=== PATIENT | female | born 1990 | race Caucasian/White ===

== ENCOUNTER → 2017-01-02 | Outpatient (CLI) | payer OTHER ==
[~2017-01-02] MED LIST: AVIATAB PO; FERR324T4 PO; IBUP-238 PO; SYNT88TA PO
[2017-01-02 13:30] LABS: AUTOMATED NEUTROPHIL # 4.3 TH/MM3 (1.8-7.7); BASOPHIL % 0.5 % (0.0-2.0); EOSINOPHIL # 0.2 TH/MM3 (0-0.4); EOSINOPHIL % 2.8 % (0.0-4.0); HEMATOCRIT 35.9 % (35.0-46.0); HEMO FLAGS DIFF FINAL; LYMPH % 23.6 % (9.0-44.0); LYMPHOCYTE # 1.6 TH/MM3 (1.0-4.8); MEAN CELL VOLUME 80.7 FL (80.0-100.0); MEAN CORPUSCULAR HEMOGLOBIN 27.7 PG (27.0-34.0); MEAN CORPUSCULAR HGB CONC 34.3 % (32.0-36.0); MONO % 8.7 % (0.0-8.0); NEUT % 64.4 % (16.0-70.0); PLATELET COUNT 295 TH/MM3 (150-450); RED BLOOD COUNT 4.44 MIL/MM3 (4.00-5.30); WHITE BLOOD COUNT 6.7 TH/MM3 (4.0-11.0)
[2017-01-02 14:09] LABS: ALKALINE PHOSPHATASE 102 U/L (45-117); ALT (GPT) 30 U/L (10-53); ANION GAP 5 MEQ/L (5-15); AST (GOT) 16 U/L (15-37); BICARBONATE 29.2 MEQ/L (21.0-32.0); BLOOD UREA NITROGEN 13 MG/DL (7-18); CHLORIDE 106 MEQ/L (98-107); GLOMERULAR FILTRATION RATE 81 ML/MIN (>89); GLUCOSE,FASTING 90 MG/DL (74-99); LDL CHOLESTEROL 68 MG/DL (0-99); POTASSIUM 4.2 MEQ/L (3.5-5.1); SODIUM (NA) 140 MEQ/L (136-145); TOTAL BILIRUBIN ADULT 0.5 MG/DL (0.2-1.0); TRANSFERRIN IRON PROFILE 345 MG/DL (200-360)
[2017-01-04 12:21] LABS: ANA SCREEN POS (NEG)
== END ==
LOC: PLAB 10:31
PROVIDERS: ATTEND Family Medicine
DX: E03.8 Other specified hypothyroidism (principal); D50.8 Other iron deficiency anemias; Z84.0 Family history of diseases of the skin and subcutaneous tissue
CPT/HCPCS: 80053; 80061; 83540; 83550; 84443; 85025; 86038; 86039